=== PATIENT | female | born 1980 | race Caucasian/White ===

== ENCOUNTER 2018-02-28 15:25 | Emergency (ER) | payer SELFPAY ==
[2018-02-28] MEDS ORDERED: HALOPERIDOL LACTATE INJ 5 MG/ML VIAL IM ONE ×4 (15:34→17:47)
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
[2018-02-28 18:20] VITALS: O2SAT 99
[2018-02-28 20:45] VITALS: BP 114/51; TEMP 97
== END 2018-02-28 20:35 | disposition home or self-care (01) ==
LOC: ER 15:25
DX: G40.909 Epilepsy, unspecified, not intractable, without status epilepticus (principal); Z87.820 Personal history of traumatic brain injury; Z88.8 Allergy status to other drugs, medicaments and biological substances; Z78.1 Physical restraint status; Z79.899 Other long term (current) drug therapy
CPT/HCPCS: 36415; 80053; 80307; 80320; 85025; J1630; J2060

== ENCOUNTER 2018-05-03 18:18 | Emergency (ER) | payer MEDICAID ==
[2018-05-03] MEDS ORDERED: KCL 20MEQ/WATER FOR INJ 100ML 20 MEQ in PREMIX BAG 1 BAG IVPB ONE (19:08)
[2018-05-03] MEDS ORDERED: POTASSIUM CHLORIDE ELIXIR 20 MEQ/15 ML UD PO ONE ×2 (19:08→21:26)
--- NOTE | 2018-05-03 19:14 | RAD ---
EXAM DESCRIPTION: Chest,1 View CLINICAL HISTORY:37 years Female, sob Comparison: None FINDINGS: No focal lung consolidation. No pleural effusion. No pneumothorax. Cardiac and mediastinal silhouette is unremarkable. Age-indeterminate right-sided rib fracture deformities . Soft tissues are unremarkable. IMPRESSION: No acute lung findings. No focal lung consolidation.Age-indeterminate right-sided rib fracture deformities . 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
--- NOTE | 2018-05-03 19:20 | CT ---
PROCEDURE: CT Head Without Intravenous Contrast CLINICAL INDICATION: The patient is 37 years old and is Female; ams, headache, epilepsy TECHNIQUE: Axial computed tomography images of the head/brain without intravenous contrast. Sagittal and coronal reformatted images were created and reviewed. This CT exam was performed using one or more of the following dose reduction techniques: automated exposure control, adjustment of the mA and/or kV according to patient size, and/or use of iterative reconstruction technique. COMPARISON: None. FINDINGS: BRAIN: CSF density structure within the left temporal lobe measuring 2.4 cm, favoring an arachnoid cyst. No hemorrhage. No significant white matter disease. VENTRICLES: Normal. No ventriculomegaly. BONES/JOINTS: Normal. No acute fracture. SOFT TISSUES: Normal. SINUSES: Unremarkable as visualized. No acute sinusitis. MASTOID AIR CELLS: Unremarkable as visualized. No mastoid effusion. IMPRESSION: 1. No acute intracranial findings. 2. CSF density structure within the left temporal lobe measuring 2.4 cm, favoring an arachnoid cyst. MRI may be obtained for confirmation. Electronically signed by: Bartolome Oquendo MD 05/03/2018 7:19 PM [facility]
[2018-05-03] MEDS ORDERED: KCL 20MEQ/WATER FOR INJ 100ML 100 ML IVPB ONE (19:28)
[2018-05-03] MEDS ORDERED: levETIRAcetam 250 MG TAB PO ONE (19:30)
[2018-05-03] MEDS ORDERED: diazePAM 2 MG TAB PO ONE (19:31)
--- NOTE | 2018-05-03 21:34 | ED.PDOC ---
History of Present Illness - General Chief Complaint: Neuro Symptoms/Deficits Stated Complaint: confused Time Seen by Provider: 05/03/18 18:23 Source: patient, family Exam Limitations: clinical condition - History of Present Illness Initial Comments: the patient is a 37-year-old female presenting to the emergency room secondary to recurrent seizure activity. The patient is known to have epilepsy and did have a grand mal seizure 2 days ago. Since then she has been slightly euphoric and has had a difficult time finding her words properly. This afternoon she was having some tonic movement issues while not going unconscious. These did resolve with a small dose of Ativan from EMS. Apparently, historically the patient has difficulty finding her words for a couple of days up to a week or 2 after her grand mal seizures when she has them. The patient has a history of a traumatic brain injury 1 year ago that has led to this problem. She does report that a couple of weeks ago her neurologist decreased her Keppra dose by half. She is unsure why they did this. The patient is pleasant and cooperative though most of her responses are appropriate some of them are not. She does exhibit some mild confusion periodically. She moves her extremities well. No evidence of any fever. No evidence of any overt infection. She has had something of a headache since her grand mal seizure 2 days ago.no nuchal rigidity. Timing/Duration: unsure Severity: moderate Improving Factors: medication Worsening Factors: nothing Associated Symptoms: denies symptoms Allergies/Adverse Reactions: Allergies Prochlorperazine [From Compazine] Allergy (Verified 05/03/18 18:42) Promethazine [From Phenergan] Allergy (Verified 05/03/18 18:42) Home Medications: Ambulatory Orders Potassium Chloride [Potassium Chloride ER] 10 meq PO DAILY #30 tab 05/03/18 Review of Systems - Review of Systems Constitutional: States: malaise EENTM: States: no symptoms reported Respiratory: States: no symptoms reported Cardiology: States: no symptoms reported Gastrointestinal/Abdominal: States: no symptoms reported Genitourinary: States: no symptoms reported Musculoskeletal: States: no symptoms reported Skin: States: no symptoms reported Neurological: States: see HPI Endocrine: States: no symptoms reported All other Systems: No Change from Baseline Past Medical History (General) - Patient Medical History Hx Seizures: Yes Hx Stroke: No Hx Congestive Heart Failure: No Hx Diabetes: No - Vaccination History Hx Influenza Vaccination: - unknown - Social History Hx Tobacco Use: Yes Hx Alcohol Use: No Hx Substance Use: No Hx Substance Use Treatment: No Hx Depression: No Family Medical History - Family History Mother Family History: Unknown Living Status: Unknown Physical Exam - Physical Exam General Appearance: Alert, No apparent distress, Other - drowsy. Easily confuused. Eye Exam: bilateral normal Ears, Nose, Throat: hearing grossly normal, normal pharynx Neck: full range of motion, supple Respiratory: lungs clear, normal breath sounds, no respiratory distress, no accessory muscle use Cardiovascular/Chest: normal peripheral pulses, regular rate, rhythm, no edema Peripheral Pulses: radial,right: 2+, radial,left: 2+, dorsalis pedis,right: 2+, dorsalis pedis,left: 2+ Gastrointestinal/Abdominal: non tender, soft Rectal Exam: deferred Back Exam: normal inspection, no CVA tenderness, no vertebral tenderness Extremity: normal range of motion, non-tender, normal inspection, no pedal edema, normal capillary refill 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 The patient has responded well to a dose of benzodiazepine and reloading her Keppra. she was mildly postictal upon arrival but mental status has improved significantly under observation. She still does have some mild difficulty finding certain words but apparently this has been a pattern that has existed from her previous seizures. She needs to go back on the 500 mg twice daily dose of keppra that she was on before as this apparently controlled her seizures better. The patient also has significant hypokalemia and did receive a couple of doses of potassium here. She needs to have this rechecked in 1-[address] weeks[address] I'm going to place her on an oral potassium supplement that she needs to take around midday. I would also advise her and her family to discuss with her neurologist the possibility of having a emergency rescue medication on hand in case of a prolonged generalized seizure. Follow-up with primary care doctor later this week or early next week. ER warnings were given. - Results/Orders Results/Orders: 05/03/18 18:23 UA [URINALYSIS] Stat 05/03/18 19:08 KCl 20Meq/Water For Inj 100Ml [Potassium 20meq in Water 100ml] 20 meq Premix Bag 1 bag IVPB ONCE 05/03/18 20:09 LEVETIRACETAM (KEPPRA) Stat Laboratory Results - last 24 hr 05/03/18 05/03/18 05/03/18 18:41 18:41 18:41 WBC 8.3 RBC 4.50 Hgb 14.0 Hct 41.3 MCV 91.7 MCH 31.1 H MCHC 33.9 RDW 13.4 Plt Count 223 MPV 9.0 Absolute Neuts (auto) 5.80 Absolute Lymphs (auto) 1.80 Absolute Monos (auto) 0.50 Absolute Eos (auto) 0.10 Absolute Basos (auto) 0.10 Neutrophils % 70.5 Lymphocytes % 21.7 Monocytes % 5.6 Eosinophils % 1.4 Basophils % 0.8 Sodium 139 Potassium 3.0 L Chloride 103 Carbon Dioxide 27 Anion Gap 12.0 BUN 11 Creatinine 0.86 BUN/Creatinine Ratio 12.8 Random Glucose 84 Serum Osmolality 276.1 Calcium 9.7 Magnesium 2.0 Total Bilirubin 0.6 AST 22 ALT 17 Alkaline Phosphatase 78 Serum Total Protein 8.1 Albumin 4.5 Globulin 3.6 H Albumin/Globulin Ratio 1.3 Serum HCG, Qual Negative the patient is negative for the flu chest x-ray shows no obvious new pathology. CT scan of the head shows a 2.4 cm left temporal area subarachnoid cyst. Departure - Departure Clinical Impression: Hypokalemia Epilepsy Qualifiers: Epilepsy type: unspecified Intractability: intractable Status epilepticus: without status epilepticus Qualified Code(s): G40.919 - Epilepsy, unspecified, intractable, without status epilepticus Disposition: Discharge to Home or Self Care Condition: Fair Departure Forms: ED Discharge - Pt. Copy, Patient Portal Self Enrollment Instructions: DI for Altered Mental Status, Seizures, Adult (DC), Hypokalemia (DC) Diet: regular diet Activity: increase activity as tolerated Prescriptions: Potassium Chloride [Potassium Chloride ER] 10 meq PO DAILY #30 tab Home Medications: Ambulatory Orders Potassium Chloride [Potassium Chloride ER] 10 meq PO DAILY #30 tab 05/03/18 Additional Instructions: the patient is a 37-year-old female with a history of a traumatic brain injury presenting after what appeared to be partial seizures that started after a grand mal seizure 2 days ago. The patient has responded well to a dose of benzodiazepine and reloading her Keppra. she was mildly postictal upon arrival but mental status has improved significantly under observation. She still does have some mild difficulty finding certain words but apparently this has been a pattern that has existed from her previous seizures. She needs to go back on the 500 mg twice daily dose of keppra that she was on before as this apparently controlled her seizures better. The patient also has significant hypokalemia and did receive a couple of doses of potassium here. She needs to have this rechecked in 1-[address] weeks[address] I'm going to place her on an oral potassium supplement that she needs to take around midday. I would also advise her and her family to discuss with her neurologist the possibility of having a emergency rescue medication on hand in case of a prolonged generalized seizure. Follow-up with primary care doctor later this week or early next week. ER warnings were given.
[2018-05-03 22:18] VITALS: BP 102/65; TEMP 99; O2SAT 100
== END 2018-05-03 22:15 | disposition home or self-care (01) ==
LOC: ER 18:18
DX: G40.919 Epilepsy, unspecified, intractable, without status epilepticus (principal); E87.6 Hypokalemia; R93.0 Abnormal findings on diagnostic imaging of skull and head, not elsewhere classified; R51 Headache; Z87.891 Personal history of nicotine dependence; Z88.8 Allergy status to other drugs, medicaments and biological substances
CPT/HCPCS: 36415; 70450; 71045; 80053; 80177; 83735; 84703; 85025; 87502; J3480

== ENCOUNTER 2018-06-30 15:23 | Emergency (ER) | payer MEDICAID, OTHER ==
[2018-06-30 16:01] VITALS: TEMP 97.7; O2SAT 99
--- NOTE | 2018-06-30 18:03 | ED.PDOC ---
History of Present Illness - General Chief Complaint: Neuro Symptoms/Deficits Stated Complaint: seizure Time Seen by Provider: 06/30/18 18:00 Source: patient Exam Limitations: no limitations - History of Present Illness Initial Comments: SHE HAD A SEIZURE AT HOME. SHE IS ON KEPPRA 1000 MG BID AND ON LORAZEPAM 2 MG TID. SHE ALSO SUFFERS OF RESTLESS LEG SYNDROME. NO INJURIES, DIDN'T INJURE HER SHOULDER. Timing/Duration: 1 hour Severity: mild Improving Factors: nothing Worsening Factors: nothing Allergies/Adverse Reactions: Allergies Prochlorperazine [From Compazine] Allergy (Verified 05/03/18 18:42) Promethazine [From Phenergan] Allergy (Verified 05/03/18 18:42) Home Medications: Ambulatory Orders Potassium Chloride [Potassium Chloride ER] 10 meq PO DAILY #30 tab 05/03/18 Review of Systems - Review of Systems Constitutional: States: no symptoms reported EENTM: States: no symptoms reported Respiratory: States: no symptoms reported Cardiology: States: no symptoms reported Gastrointestinal/Abdominal: States: no symptoms reported Musculoskeletal: States: no symptoms reported Skin: States: no symptoms reported Neurological: States: other - SEIZURES Endocrine: States: no symptoms reported, excessive sweating Past Medical History (General) - Patient Medical History Hx Seizures: Yes Hx Stroke: No Hx Congestive Heart Failure: No Hx Diabetes: No - Vaccination History Hx Influenza Vaccination: - unknown - Social History Hx Tobacco Use: Yes Hx Alcohol Use: No Hx Substance Use: No Hx Substance Use Treatment: No Hx Depression: No Family Medical History - Family History Mother Family History: Unknown Living Status: Unknown Physical Exam - Physical Exam General Appearance: Alert, Well Developed, Well Groomed Eye Exam: bilateral normal, bilateral abnormal EOM ENT Exam: normal ENT inspection, hearing grossly normal Neck: non-tender Respiratory: chest non-tender Cardiovascular/Chest: normal peripheral pulses Gastrointestinal/Abdominal: normal bowel sounds, non tender Back Exam: normal inspection, no CVA tenderness, 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 Copy, Patient Portal Self Enrollment Instructions: Seizures, Adult (DC) Referrals: BRIANNE ABDULLAHI [Primary Care Provider] - 1-2 Weeks Home Medications: Ambulatory Orders Potassium Chloride [Potassium Chloride ER] 10 meq PO DAILY #30 tab 05/03/18 Additional Instructions: CONTINUE HOME MEDS
[2018-06-30 18:48] VITALS: BP 120/79
== END 2018-06-30 18:35 | disposition home or self-care (01) ==
LOC: ER 15:23
DX: G40.909 Epilepsy, unspecified, not intractable, without status epilepticus (principal); G25.81 Restless legs syndrome; Z87.891 Personal history of nicotine dependence; Z79.899 Other long term (current) drug therapy; Z88.8 Allergy status to other drugs, medicaments and biological substances

== ENCOUNTER 2018-07-20 17:55 | Emergency (ER) | payer OTHER ==
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
[2018-07-20] MEDS ORDERED: LACTATED RINGERS 1,000 ML IVS ONE (18:16)
[2018-07-20] MEDS ORDERED: levETIRAcetam INJ 1,000 MG in SODIUM CHLORIDE 0.9% 100ML 100 ML IVPB ONE (18:19)
[2018-07-20] MEDS ORDERED: SODIUM CHLORIDE 0.9% 100ML 100 ML IVPB ONE (18:20)
[2018-07-20] MEDS ORDERED: levETIRAcetam INJ 100 MG/ML VIAL IVPB ONE (18:20)
--- NOTE | 2018-07-20 19:07 | RAD ---
EXAM: Chest,1 View CLINICAL INDICATION: Altered mental status COMPARISON: 05/03/2018 FINDINGS: A single view of the chest was obtained. The heart size is normal. The pulmonary vascularity is unremarkable. The lungs are clear except for stable chronic scarring in the right lung base. There is no consolidation, infiltrate, pleural effusion, or pneumothorax. IMPRESSION: No evidence of active pulmonary disease. Electronically signed by: Drew Munson MD 07/20/2018 7:04 PM CDT
[2018-07-20] MEDS ORDERED: SODIUM CHLORIDE 0.9% 1000ML 1,000 ML IVS ONE (19:48)
[2018-07-20] MEDS ORDERED: INSULIN, REG.(HUMAN) 100 U/ML VIAL SUBCU ONE (19:52)
[2018-07-20] MEDS ORDERED: INSULIN, REG.(HUMAN) 100 U/ML VIAL IV ONE (19:53)
[2018-07-20] MEDS ORDERED: DEXTROSE 50% 25 GM/50 ML SYG IV ONE ×2 (21:36→21:44)
[2018-07-20] MEDS ORDERED: SODIUM CHLORIDE 0.9% 1000ML 500 ML IVS ONE (21:44)
[2018-07-20 22:59] VITALS: TEMP 99.2; O2SAT 99
[2018-07-20 23:41] VITALS: BP 149/79
== END 2018-07-20 23:40 | disposition short-term general hospital (02) ==
LOC: ER 17:55
DX: G40.909 Epilepsy, unspecified, not intractable, without status epilepticus (principal); R79.89 Other specified abnormal findings of blood chemistry; R73.9 Hyperglycemia, unspecified; R81 Glycosuria; R00.0 Tachycardia, unspecified; Z87.891 Personal history of nicotine dependence; Z79.899 Other long term (current) drug therapy; Z88.8 Allergy status to other drugs, medicaments and biological substances
CPT/HCPCS: 36415; 71045; 80048; 80076; 80307; 81001; 82550; 82553; 82948; 84484; 84703; 85025; 85610; 85730; 93005; J2060; J7030; J7050; J7120; J7799

== ENCOUNTER 2018-11-23 13:04 | Emergency (ER) | payer OTHER ==
[2018-11-23 13:30] VITALS: TEMP 96.4
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
[2018-11-23] MEDS ORDERED: KETOROLAC TROMETHAMINE INJ 30 MG/ML VIAL IV ONE (14:06)
[2018-11-23] MEDS ORDERED: METOCLOPRAMIDE HCL INJ 10 MG/2 ML VIAL IV ONE (14:06)
[2018-11-23 16:11] VITALS: O2SAT 98
[2018-11-23 17:01] VITALS: BP 113/58
== END 2018-11-23 17:01 | disposition home or self-care (01) ==
LOC: ER 13:04
DX: G40.909 Epilepsy, unspecified, not intractable, without status epilepticus (principal); Z87.820 Personal history of traumatic brain injury; Z87.891 Personal history of nicotine dependence; Z79.899 Other long term (current) drug therapy; Z88.8 Allergy status to other drugs, medicaments and biological substances
CPT/HCPCS: J1885; J2765

== ENCOUNTER 2019-01-24 11:07 | Emergency (ER) | payer OTHER ==
--- NOTE | 2019-01-24 13:06 | ED.PDOC ---
History of Present Illness - General Chief Complaint: Neuro Symptoms/Deficits Stated Complaint: Post seizure Time Seen by Provider: 01/24/19 11:25 Source: RN notes reviewed, Vital Signs reviewed, EMS notes reviewed, family - Exam Limitations: clinical condition - History of Present Illness Initial Comments: Pt with a seizure hx who presents via EMS. Unable to obtain HPI/ROS as pt is somnolent and confused s/p seizure. 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 Seizure lasted 2 minutes and pt became very violent during the post ictal period. EMS gave pt 5 mg of iv Valium. 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 Severity: severe Improving Factors: other - valium Worsening Factors: nothing Associated Symptoms: other - none Allergies/Adverse Reactions: Allergies Prochlorperazine [From Compazine] Allergy (Verified 06/30/18 19:24) Promethazine [From Phenergan] Allergy (Verified 06/30/18 19:24) Home Medications: Ambulatory Orders Potassium Chloride [Potassium Chloride ER] 10 meq PO DAILY #30 tab 05/03/18 Pramipexole Dihydrochloride [Mirapex] 0.25 mg PO BEDTIME 06/30/18 Cbd Oil 1000 Mg 1,000 mg PO BID 11/23/18 Ferrous Sulfate [Iron] 130 mg PO DAILY 11/23/18 Ginkgo Biloba 11/23/18 Lacosamide [Vimpat] 200 mg PO BID 11/23/18 Lamotrigine 100 mg PO BID 11/23/18 Review of Systems - Review of Systems Unable to Obtain Due To: condition, clinical condition Past Medical History (General) - Patient Medical History Hx Seizures: Yes Hx Stroke: No Hx Congestive Heart Failure: No Hx Diabetes: No - Vaccination History Hx Influenza Vaccination: - unknown Hx Pneumococcal Vaccination: - unknown - Social History Hx Tobacco Use: Yes Hx Alcohol Use: No Hx Substance Use: Yes - Uses CBD oil for seizures Hx Substance Use Treatment: No Hx Depression: No Family Medical History - Family History Mother Family History: Unknown Living Status: Unknown Physical Exam - Physical Exam General Appearance: Agitated, Anxious, Lethargic, Obese, Other - confused and post ictal Eye Exam: bilateral normal ENT Exam: other - pt with small cut on tongue. No active bleeding. Neck: full range of motion, supple, trachea midline Respiratory: lungs clear, normal breath sounds, no respiratory distress Cardiovascular/Chest: regular rate, rhythm, no gallop, no murmur Peripheral Pulses: radial,right: 2+, radial,left: 2+ Gastrointestinal/Abdominal: normal bowel sounds, soft Back Exam: normal inspection, no vertebral tenderness Extremities Exam: non-tender, normal range of motion, no evidence of injury Mental Status: disoriented x 3 acute care assistant Exam: PERRL, other - Pt is confused and somnolent Motor/Sensory: no motor deficit Skin Exam: normal color, diaphoresis Progress - Progress Progress: 01/24/19 13:09 Pt with a "seizure" while in the department. Pt is groaning, thrashing about in the bed. No rhythmic jerking. Pt given Ativan 2 mg ivp at 1222 hrs. Pt became relaxed and the constellation of symptoms resolved. 01/24/19 15:15 Pt's GRANDE has improved while in department. 10-->7-->5-->2. Suspect GRANDE secodary to seizure like activity. Plan d/c home. D/W pt and and they voice understanding and agreement. David Castellanos M.D. #[id number] - Results/Orders Results/Orders: 01/24/19 11:26 URINALYSIS Stat Laboratory Results - last 24 hr 01/24/19 01/24/19 11:45 11:45 WBC 5.0 RBC 4.14 L Hgb 13.0 Hct 39.1 MCV 94.4 MCH 31.3 H MCHC 33.2 RDW 13.0 Plt Count 224 MPV 8.7 Absolute Neuts (auto) 3.50 Absolute Lymphs (auto) 1.00 Absolute Monos (auto) 0.20 Absolute Eos (auto) 0.20 Absolute Basos (auto) 0.10 Neutrophils % 70.6 Lymphocytes % 20.4 Monocytes % 4.4 Eosinophils % 3.4 Basophils % 1.2 Sodium 138 Potassium 4.0 Chloride 109 Carbon Dioxide 17 L Anion Gap 16.0 BUN 9 Creatinine 0.95 BUN/Creatinine Ratio 9.5 L Random Glucose 78 Serum Osmolality 273.2 L Calcium 9.0 Total Bilirubin 0.2 AST 24 ALT 18 Alkaline Phosphatase 68 Creatine Kinase 101 Serum Total Protein 6.8 Albumin 4.0 Globulin 2.8 Albumin/Globulin Ratio 1.4 Lipase 27 Departure - Departure Clinical Impression: Stroke-like symptoms Headache Qualifiers: Headache chronicity pattern: acute headache Intractability: not intractable Time of Disposition: 15:20 Disposition: Discharge to Home or Self Care Condition: Good Departure Forms: ED Discharge - Pt. Copy, Patient Portal Self Enrollment Instructions: Seizures, Adult (DC) Referrals: BRIANNE ABDULLAHI [Primary Care Provider] - 1-2 Weeks Home Medications: Ambulatory Orders Potassium Chloride [Potassium Chloride ER] 10 meq PO DAILY #30 tab 05/03/18 Pramipexole Dihydrochloride [Mirapex] 0.25 mg PO BEDTIME 06/30/18 Cbd Oil 1000 Mg 1,000 mg PO BID 11/23/18 Ferrous Sulfate [Iron] 130 mg PO DAILY 11/23/18 Ginkgo Biloba 11/23/18 Lacosamide [Vimpat] 200 mg PO BID 11/23/18 Lamotrigine 100 mg PO BID 11/23/18
[2019-01-24] MEDS ORDERED: KETOROLAC TROMETHAMINE INJ 30 MG/ML VIAL IV ONE (14:38)
[2019-01-25 14:46] VITALS: BP 118/83; TEMP 98.2; O2SAT 98
== END 2019-01-24 15:30 | disposition home or self-care (01) ==
LOC: ER 11:07
DX: R51 Headache (principal); R56.9 Unspecified convulsions; R40.0 Somnolence; R41.0 Disorientation, unspecified; S01.512A Laceration without foreign body of oral cavity, initial encounter; X58.XXXA Exposure to other specified factors, initial encounter; Y92.9 Unspecified place or not applicable
CPT/HCPCS: 36415; 80053; 82550; 83690; 85025; J1885; J2060

== ENCOUNTER → 2019-02-16 | Outpatient (CLI) | payer OTHER ==
--- NOTE | 2019-02-17 17:49 | MRI ---
EXAM DESCRIPTION: Brain w/o Contrast: MRI. CLINICAL HISTORY: DIZZINESS COMPARISON: CT scan of the head without contrast report only 05/03/2018 TECHNIQUE: Multiplanar, high-field MRI unit, multiple diffusion sequences, multiple conventional sequences without contrast. FINDINGS: Lobulated mass in the posterior left temporal lobe abutting the dura and the temporal horn of the left lateral ventricle. Septations in the mass which is predominantly hyperintense T2 signal and hypointense T1 signal. Also low signal and blooming signal noted in the periphery of the mass on T2*gradient, and diffusion SBO sequences. No diffusion restriction. Dimensions are 4 cm AP, 1.8 cm craniocaudal, and 1.9 cm transverse. Also dilation of the adjacent occipital horn of the left lateral ventricle. No mass effect, no acute hemorrhage. Remainder of the brain showing normal FLAIR and T2-weighted signal in the periventricular white matter and goss/sub-cortical white matter junctions of the cerebral hemispheres. . No hemorrhage, no cerebral edema, no mass-effect. Normal signal in the bilateral basal ganglia. Normal signal in the brainstem and cerebellar hemispheres. No hemorrhage, no parenchymal edema, no mass-effect. Concordance of the diffusion and non-diffusion sequences with no diffusion restriction. Cortical sulci, ventricles, and other CSF spaces, and the subdural spaces are normally configured for patients age except as described above.. No effacement or displacement. No midline shift. No extra-axial hemorrhage. Normal flow signal void in the major vessels of the [place], and the venous sinuses. IACs are symmetric bilaterally. Normal signal in the bilateral mastoid air cells. No mass effect in the bilateral cerebellopontine angles. Pituitary gland occupies most of the sella. Base of the cerebellar tonsils is above the foramen magnum. Mucoperiosteal thickening in the bilateral. The bony calvarium is intact. IMPRESSION: 1. Lobulated cystlike mass in the posterior left temporal lobe with adjacent cortical atrophy and dilation of the temporal horn of the left lateral ventricle and occipital horn. Stable size compared to the prior CT scan. Magnetic susceptibility suggest elements of old hemorrhage. This could represent encephalomalacia, previous tumor resection or other brain tissue resection. No acute hemorrhage, mass effect, or diffusion restriction. Electronically signed by: Low Caballero MD 02/17/2019 5:47 PM CDT
== END ==
LOC: MRI 09:00
PROVIDERS: ATTEND Psychiatry & Neurology Neurology
DX: R42 Dizziness and giddiness (principal); G93.9 Disorder of brain, unspecified

== ENCOUNTER 2019-04-02 12:07 | Emergency (ER) | payer OTHER ==
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
[2019-04-02] MEDS ORDERED: MORPHINE SULFATE INJ 10 MG/ML VIAL IM ONE (13:27)
[2019-04-02] MEDS ORDERED: ONDANSETRON INJ 4 MG/2 ML VIAL IM ONE (13:28)
--- NOTE | 2019-04-02 14:46 | RAD ---
EXAM DESCRIPTION: Lumbar Spine x-rays 3 Views CLINICAL HISTORY: 38 yearsFemale, back pain COMPARISON: None. IMPRESSION: 3 views of the lumbar spine demonstrate no evidence of acute fracture, dislocation, or destructive osseous lesion. Mild disc narrowing at L1-L2. Remaining disc heights are preserved. Mild hypertrophic facet degenerative changes at L4-L5 and L5-S1. Left upper quadrant surgical clips. Electronically signed by: Maxx Ward MD 04/02/2019 2:45 PM [facility]
[2019-04-02 16:34] VITALS: BP 134/74
[2019-04-02 16:35] VITALS: TEMP 98; O2SAT 99
== END 2019-04-02 15:50 | disposition home or self-care (01) ==
LOC: ER 12:07
DX: M54.41 Lumbago with sciatica, right side (principal); G40.909 Epilepsy, unspecified, not intractable, without status epilepticus; G89.29 Other chronic pain; Z79.899 Other long term (current) drug therapy; Z88.8 Allergy status to other drugs, medicaments and biological substances; Z87.891 Personal history of nicotine dependence
CPT/HCPCS: 72100; J2270; J2405

== ENCOUNTER → 2019-04-03 | Outpatient (CLI) | payer OTHER | LOC: LAB.O 15:19 | PROVIDERS: ATTEND Psychiatry & Neurology Neurology | DX: G40.309 Generalized idiopathic epilepsy and epileptic syndromes, not intractable, without status epilepticus (principal) ==

== ENCOUNTER 2019-12-29 14:14 | Emergency (ER) | payer OTHER ==
[2019-12-29] MEDS ORDERED: SODIUM CHLORIDE 0.9% (FLUSH) 10 ML SYG IV PRN (14:29)
[2019-12-29] MEDS ORDERED: SODIUM CHLORIDE 0.9% 1000ML 1,000 ML IVS ONE (14:30)
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
[2019-12-29] MEDS ORDERED: ONDANSETRON INJ 4 MG/2 ML VIAL ONE (14:51)
[2019-12-29] MEDS ORDERED: KETOROLAC TROMETHAMINE INJ 30 MG/ML VIAL ONE (14:51)
[2019-12-29] MEDS ORDERED: KETOROLAC TROMETHAMINE INJ 30 MG/ML VIAL IV ONE (14:54)
[2019-12-29] MEDS ORDERED: ONDANSETRON INJ 4 MG/2 ML VIAL IV ONE ×2 (14:54→16:58)
--- NOTE | 2019-12-29 15:14 | RAD ---
: 1980. Technique: Portable AP chest x-ray. Comparison: July 20, 2018. Clinical history: seizures. Heart size: Normal. Lungs: No acute consolidation. Mild chronic scarring in the right lung is less conspicuous. Pleura: No pleural effusion. No pneumothorax. Mediastinum and [place]ru: Unremarkable. Skeletal: Right rib thoracic skeletal deformity redemonstrated. Support tubings: None. Impression: 1. No acute findings in the chest. Electronically signed by: Bruce Morel MD 12/29/2019 3:12 PM CDT
[2019-12-29] MEDS ORDERED: MORPHINE SULFATE INJ 10 MG/ML VIAL IV ONE (16:57)
[2019-12-29 17:55] VITALS: BP 123/90; TEMP 97.4; O2SAT 99
== END 2019-12-29 17:55 | disposition home or self-care (01) ==
LOC: ER 14:14
DX: G43.901 Migraine, unspecified, not intractable, with status migrainosus (principal); R19.7 Diarrhea, unspecified; G40.909 Epilepsy, unspecified, not intractable, without status epilepticus; Z20.828 Contact with and (suspected) exposure to other viral communicable diseases; Z79.899 Other long term (current) drug therapy; Z87.891 Personal history of nicotine dependence; Z88.8 Allergy status to other drugs, medicaments and biological substances; Z87.820 Personal history of traumatic brain injury
CPT/HCPCS: 36415; 71045; 80053; 82150; 83690; 83735; 84703; 85025; 87635; 93005; 94760; J1885; J2270; J2405; J7030